=== PATIENT | male | born 1975 | race Caucasian/White ===

== ENCOUNTER 2019-12-24 09:47 | Emergency (ER) | payer OTHER ==
[~2019-12-24] VITALS: Ht 182.9 cm; Wt 79.4 kg
[2019-12-24] MEDS ORDERED: DICLOFENAC SODI75 MG PO (10:55)
== END 2019-12-24 12:51 | disposition home or self-care (01) ==
LOC: ER 09:47
DX: S70.01XA Contusion of right hip, initial encounter (principal); W22.8XXA Striking against or struck by other objects, initial encounter; Y93.89 Activity, other specified; Y92.098 Other place in other non-institutional residence as the place of occurrence of the external cause; Y99.8 Other external cause status